=== PATIENT | female | born 1945 | race Caucasian/White ===

== ENCOUNTER 2016-06-17 21:01 | Emergency (ER) | payer MEDICARE ==
[~2016-06-17] VITALS: Ht 152.4 cm; Wt 57.3 kg
[~2016-06-17 21:01] MED LIST: [UNRECOGNIZED DRUG - CODE] PO
[2016-06-17 21:04] VITALS: BP 150/78; PULSE 89; RESP 16; O2SAT 100
[2016-06-17 21:44] LABS: APPEARANCE,URINE CLOUDY (CLEAR,HAZY); COLOR,URINE BLOODY (YELLOW); OCCULT BLOOD,URINE LARGE (NEGATIVE); UROBILINOGEN,URINE NORMAL (NORMAL)
[2016-06-17] MEDS ORDERED: _Nitrofurantoin Macrocrystal 100 mg Capsule PO SCH (21:55)
--- NOTE | 2016-06-17 22:14 | ED.REPORT ---
HPI- Female Date of Service June 17, 2016 ED Provider: Shashi Membreno MD This is a 71 year old female without significant past medical history who comes in to [facility] ED complaining of dysuria and hematuria. She reports a sudden onset of symptoms this evening. She denies chills, fever, chest pain, shortness of breath, nausea, vomiting, diarrhea, flank pain. She reports prior history of UTI about 7 years ago. She states she id allergic to quinolones. Nursing Notes Stated Complaint: POSSIBLE UTI Chief Complaint: Female Abdominal Pain Nursing Notes Reviewed: Yes Allergies: Coded Allergies: chloramphenicol (Verified Allergy, Severe, severe long lasting hives, 08/02) Quinolones (Verified Allergy, Intermediate, severe headache, 08/02/13) Uncoded Allergies: flouride (Allergy, Intermediate, headache, 07/31/12) headache, nausea, disorientation Scheduled THYROID-Expunged Drug, Do Not Renew! (THYROID-Expunged Drug, Do Not Renew!) 30 Mg Tab 0.5 GR PO DAILY General Time Seen by MD: 21:10 Chief Complaint Blood in urine, Dysuria, Urinary frequency Hx Obtained From: Patient Arrived By: Walk-in Sudden in Onset?: No Onset Occurred: 1 - 4 hours ago Symptom Duration: Since onset Past Medical History Past Medical History Notes: None reported Past Surgical History Reports: Appendectomy, Tonsillectomy Smoking History Never Smoker Social History Alcohol Use: "Social" Drug Use: Denies drug use Ambulatory Status Independent Review of Systems A comprehensive review of systems has been conducted with the patient and was found to be negative except what is mentioned in the history of present illness. Physical Exam Initial Vital Signs Vital Signs (First) Date Time Temp Pulse Resp B/P Pulse Ox O2 Delivery O2 Flow Rate FiO2 06/17/16 21:04 37.2 89 16 150/78 100 Room Air Initial VS: Reviewed, Vital signs normal General/Constitutional: Well-developed, Well-nourished Head / Eyes: Atraumatic, Normocephalic, PERRL ENT: Mucous membranes moist, Conjunctiva normal, No scleral icterus Neck: Supple, Non-tender, Full range of motion Respiratory: Breath sounds normal, Clear to auscultation, No respiratory distress Cardiovascular: Regular rate & rhythm, Heart sounds normal, Intact distal pulses Abdomen / GI: Soft, Non-tender, No guarding, No rebound, No distention Back: No CVA tenderness Lymphatic: No lymphadenopathy Extremities: Vascular intact, Neuro intact, No swelling, No tenderness Skin: Warm, Dry, No cyanosis Neurologic: Alert, Oriented, Nonfocal Psychiatric: Mood/affect normal, Behavior normal, Normal thought content Back: Atraumatic, Non-tender Interpretation & Diagnostics Lab Results Interpretation Test 06/17/16 21:26 Urine Color Bloody (YELLOW) Urine Appearance Cloudy (CLEAR,HAZY) Urine pH 6.0 (5.0-8.0) Urine Specific [place] 1.018 (1.003-1.035) Urine Protein 300mg/dL (NEG,TRACE) Urine Glucose (UA) Negativemg/dL (NEGATIVE) Urine Ketones Negativemg/dL (NEGATIVE) Urine Occult Blood Large (NEGATIVE) Urine Nitrite Negative (NEGATIVE) Urine Bilirubin Negative (NEGATIVE) Urine Urobilinogen Normalmg/dL (NORMAL) Urine Leukocyte Esterase Small (NEGATIVE) Urine RBC Packed/hpf (0-2) Urine WBC 6-10/hpf (0-5) Urine Epithelial Cells Occasional/hpf (NONE-MOD) Urine Crystals None seen (NONE SEEN) Urine Bacteria Few/hpf (NONE-FEW) Urine Hyaline Casts None/lpf (NONE) Urine Granular Casts None seen (NONE SEEN) Urine Waxy Casts None seen (NONE SEEN) Urine Red Blood Cell Casts None seen (NONE SEEN) Urine White Blood Cell Casts None seen (NONE SEEN) Urine Mucus None seen (None Seen) Urine Trichomonas None seen (NONE SEEN) Urine Yeast None (NONE SEEN) Urinalysis Comment None Urine Culture Reflexed Indicated Re-Eval/Medical Decision Med Decision/Clinical Course In summary, this is a 71 year old female who presents to ER with sudden onset of dysuria and hematuria. UA positive for small leukocytes esterase and hematuria. Patient discharged home on Keflex and instructions to follow up with PCP within a week. Discharge & Departure Impression: Primary Impression: Hemorrhagic cystitis Additional Impression: UTI (urinary tract infection) Urinary tract infection type: acute cystitis Hematuria presence: with hematuria Qualified Code: N30.01 - Acute cystitis with hematuria Disposition: Home Discharge Condition Condition: Stable Additional Instructions: Thank you for seeking care at emergency room today. You have hemorrhagic cystitis and possible urinary tract infection. We are waiting for urine cultures to come back most likely tomorrow. We are sending you home with an antibiotic called Keflex. Please take it three times a day for 3-5 days and see if your symptoms improve. Also, we would like you to follow up with your PCP within a week or so. Please return to emergency room immediately if you develop worsening of the symptoms, fever, severe abdominal pain, etc. Thank you for letting us partake in your care today. Referrals: Debbie Marc MD (PCP) EDSupervising Provider for APC: Shashi Membreno MD copies to: Debbie Marc MD, Oksana S DO June 17, 2016 22:14 Shashi Membreno MD June 18, 2016 01:32
[2016-06-17 22:54] VITALS: BP 144/73; PULSE 83; RESP 16; O2SAT 100
[2016-06-18] MEDS ORDERED: _Cephalexin 500 mg Capsule PO SCH (08:30)
== END 2016-06-17 23:01 | disposition home or self-care (01) ==
LOC: SED 21:01
DX: N30.01 Acute cystitis with hematuria (principal); Z87.440 Personal history of urinary (tract) infections; Z88.8 Allergy status to other drugs, medicaments and biological substances